=== PATIENT | male | born 1985 | race Caucasian/White ===

== ENCOUNTER 2017-02-11 00:09 | Observation (INO) | payer BC ==
[2017-02-11] MEDS ORDERED: diphenhydrAMINE 50 MG/ML SDV IVPUSH ONE (00:17)
[2017-02-11] MEDS ORDERED: Albuterol/Ipratropium 3.0-0.5 MG/3 ML Neb Soln NEB ONE ×2 (00:17→01:24)
--- NOTE | 2017-02-11 00:18 | EDM.PDOC ---
ED HPI GENERAL MEDICAL PROBLEM - General Chief Complaint: Allergic Reaction Stated Complaint: ANAPHYLAXIS Time Seen by Provider: 02/11/17 01:47 - History of Present Illness INITIAL COMMENTS - FREE TEXT/NARRATIVE: HISTORY AND PHYSICAL: History of present illness: Patient 31-year-old white male presents with acute allergic reaction after having had peanut butter he is known to be allergic to peanuts he was given epi 2 prior to arrival he still has shortness of breath and wheezing Review of systems: As per history of present illness and below otherwise all systems reviewed and negative. Past medical history: As per history of present illness and as reviewed below otherwise noncontributory. Surgical history: As per history of present illness and as reviewed below otherwise noncontributory. Social history: No reported history of drug or alcohol abuse. Family history: As per history of present illness and as reviewed below otherwise noncontributory. Physical exam: HEENT: Atraumatic, normocephalic, pupils reactive, negative for conjunctival pallor or scleral icterus, mucous membranes moist, throat clear, neck supple, nontender, trachea midline. No tongue or lip swelling noted Lungs: Diminished with rare end expiratory wheeze breath sounds equal bilaterally, chest nontender. Heart: S1S2, regular, negative for clicks, rubs, or JVD. Abdomen: Soft, nondistended, nontender. Negative for masses or hepatosplenomegaly. Negative for costovertebral tenderness. Pelvis: Stable nontender. Genitourinary: Deferred. Rectal: Deferred. Extremities: Atraumatic, negative for cords or calf pain. Neurovascular unremarkable. Neuro: Awake, alert, oriented. Cranial nerves II through XII unremarkable. Cerebellum unremarkable. Motor and sensory unremarkable throughout. Exam nonfocal. Diagnostics: None Therapeutics: Benadryl 50 IV Solu-Medrol 125 IV albuterol ipratropium nebulizer Impression: #1 acute allergic reaction Definitive disposition and diagnosis as appropriate pending reevaluation and review of above. - Related Data Allergies Allergy/AdvReac Type Severity Reaction Status Date / Time peanut Allergy Difficulty Verified 02/11/17 00:28 Breathing Home Meds: Home Meds . [No Known Home Meds] 02/11/17 [History] ED ROS ALLERGIC REACTION - Review of Systems Review Of Systems: ROS reveals no pertinent complaints other than HPI. ED EXAM GENERAL NO PERIP PULSE - Physical Exam Exam: See Below (See dictation) Course - Vital Signs Last Recorded V/S: Last Vital Signs Temp 36.3 C 02/11/17 01:02 Pulse 79 02/11/17 01:38 Resp 18 02/11/17 01:38 BP 100/58 L 02/11/17 01:38 Pulse Ox 95 02/11/17 01:38 - Orders/Labs/Meds Orders: Active Orders 24 hr Category Date Time Status EKG Documentation Completion [RC] STAT Care 02/11/17 01:39 Active RT Aerosol Therapy [RC] ASDIRECTED Care 02/11/17 00:18 Active RT Aerosol Therapy [RC] ASDIRECTED Care 02/11/17 01:26 Active Chest 1V Frontal [CR] Stat Exams 02/11/17 01:39 Ordered CBC WITH AUTO DIFF [HEME] Stat Lab 02/11/17 01:39 Ordered COMPREHENSIVE METABOLIC PN,CMP [CHEM] Stat Lab 02/11/17 01:39 Ordered Meds: Medications Discontinued Medications Generic Name Dose Route Start Last Admin Trade Name Juhi PRN Reason Stop Dose Admin Albuterol/Ipratropium 3 ml 02/11/17 00:17 02/11/17 00:28 Duoneb 3.0-0.5 Mg/3 Ml NEB 02/11/17 00:18 3 ml ONETIME ONE Administration Albuterol/Ipratropium 3 ml 02/11/17 01:24 02/11/17 01:31 Duoneb 3.0-0.5 Mg/3 Ml NEB 02/11/17 01:25 3 ml ONETIME ONE Administration Diphenhydramine HCl 50 mg 02/11/17 00:17 02/11/17 00:28 Benadryl IVPUSH 02/11/17 00:18 50 mg ONETIME ONE Administration Methylprednisolone Sodium Succinate 125 mg 02/11/17 00:19 02/11/17 00:28 Solu-Medrol IVPUSH 02/11/17 00:20 125 mg ONETIME ONE Administration Ondansetron HCl 8 mg 02/11/17 00:27 02/11/17 00:29 Zofran IVPUSH 02/11/17 00:28 8 mg ONETIME ONE Administration Departure - Departure Time of Disposition: 01:47 Disposition: Refer to Observation Condition: Good Clinical Impression: Allergic reaction - Discharge Information - My Orders Last 24 Hours: My Active Orders 02/11/17 00:18 RT Aerosol Therapy [RC] ASDIRECTED 02/11/17 01:26 RT Aerosol Therapy [RC] ASDIRECTED 02/11/17 01:39 EKG Documentation Completion [RC] STAT Chest 1V Frontal [CR] Stat CBC WITH AUTO DIFF [HEME] Stat COMPREHENSIVE METABOLIC PN,CMP [CHEM] Stat - Assessment/Plan Last 24 Hours: My Active Orders 02/11/17 00:18 RT Aerosol Therapy [RC] ASDIRECTED 02/11/17 01:26 RT Aerosol Therapy [RC] ASDIRECTED 02/11/17 01:39 EKG Documentation Completion [RC] STAT Chest 1V Frontal [CR] Stat CBC WITH AUTO DIFF [HEME] Stat COMPREHENSIVE METABOLIC PN,CMP [CHEM] Stat
[2017-02-11] MEDS ORDERED: methylPREDNISolone Sodium Succinate 125 MG/2 ML SDV IVPUSH ONE (00:19)
[2017-02-11] MEDS ORDERED: Ondansetron 4 MG/2 ML SDV IVPUSH ONE (00:27)
[2017-02-11 02:42] LABS: CHLORIDE,CL 104 mmol/L (98-110); SODIUM,NA 142 mmol/L (136-146)
[2017-02-11] MEDS ORDERED: Ondansetron 4 MG/2 ML SDV IVPUSH PRN (03:25)
[2017-02-11] MEDS ORDERED: Albuterol/Ipratropium 3.0-0.5 MG/3 ML Neb Soln NEB PRN (06:37)
[2017-02-11] MEDS ORDERED: Benzocaine/Cetylpyridinium/Menthol Lozenge MUCMEM PRN (08:59)
[2017-02-11] MEDS ORDERED: Fluticasone/Salmeterol 250-50 MCG Inhalation Powder 14/Diskus INH SCH (09:00)
--- NOTE | 2017-02-11 11:45 | PCM.HP ---
H&P History of Present Illness - General Date of Service: 02/11/17 Admit Problem/Dx: Admission Diagnosis/Problem Admission Diagnosis/Problem Anaphylaxis Source of Information: Patient History Limitations: Reports: No Limitations - History of Present Illness Initial Comments - Free Text/Narative: 31 yo male with history of asthma admitted for anaphylactic reaction to peanut butter. He was eating a peanut butter cookie yesterday and felt like his throat was swelling up, wheezing, choking, nausea, diffuse wheals . He had a epi pen where he used it twice without improvement. He has never been admitted for anaphylaxis. In the ER, he recieved IVP benadryl and solumedrol. He is admitted for monitoring of anaphylactic reaction. He is allergic to all nuts and penicillin. He never experiecned severe reaction as this episode. Throat Pain Score (Numeric/FACES): 1 - Related Data Allergies/Adverse Reactions: Allergies Allergy/AdvReac Type Severity Reaction Status Date / Time peanut Allergy Difficulty Verified 02/11/17 00:28 Breathing Penicillins Allergy Difficulty Verified 02/11/17 03:15 Breathing Home Medications: Home Meds Albuterol Sulfate [Ventolin Hfa] 02/11/17 [History] Fluticasone/Salmeterol [Advair Diskus 250-50] 02/11/17 [History] Fluticasone/Salmeterol [Advair Diskus 250-50] 1 puff INH BID inhaler 02/11/17 [ Rx] Past Medical History - Past Health History Medical/Surgical History: Denies Medical/Surgical History Respiratory History: Reports: Asthma - Past Surgical History GI Surgical History: Reports: Hernia Repair/Other Social & Family History - Family History Family Medical History: Noncontributory - Tobacco Use Smoking Status *Q: Never Smoker Second Hand Smoke Exposure: No - Caffeine Use Caffeine Use: Reports: Coffee - Alcohol Use Date of Last Drink: 02/11/17 - Recreational Drug Use Recreational Drug Use: No H&P Review of Systems - Review of Systems: Review Of Systems: See Below General: Reports: No Symptoms HEENT: Reports: Sore Throat Pulmonary: Reports: No Symptoms Cardiovascular: Reports: No Symptoms Gastrointestinal: Reports: No Symptoms Genitourinary: Reports: No Symptoms Musculoskeletal: Reports: No Symptoms Skin: Reports: Urticaria. Denies: Pruritis Psychiatric: Reports: No Symptoms Neurological: Reports: No Symptoms Immunologic: Reports: Anaphylaxis Exam - Exam Exam: See Below - Vital Signs Vital Signs: Last Vital Signs Temp 98.0 F 02/11/17 07:50 Pulse 96 02/11/17 07:50 Resp 20 02/11/17 07:50 BP 92/44 L 02/11/17 07:50 Pulse Ox 96 02/11/17 07:50 Weight: 69.1 kg - Exam General: Alert, Oriented, Cooperative HEENT: Conjunctiva Clear, EOMI, Hearing Intact, Mucosa Moist & [place], Nares Patent Neck: Supple, Trachea Midline Lungs: Clear to Auscultation, Normal Respiratory Effort. No: Rhonchi, Stridor, Wheezing Cardiovascular: Regular Rate, Regular Rhythm Abdomen: Normal Bowel Sounds, Soft Back Exam: Normal Inspection, Full Range of Motion Extremities: Normal Inspection Skin: Rash (upper extremity wheals resolving. No warmth, No edema) Neurological: Cranial Nerves Intact - Patient Data Lab Results Last 24 hrs: Laboratory Results - last 24 hr 02/11/17 02/11/17 Range/Units 01:58 01:58 WBC 12.47 H (4.0-11.0) K/uL RBC 4.80 (4.50-5.90) M/uL Hgb 14.2 (13.0-17.0) g/dL Hct 42.3 (38.0-50.0) % MCV 88.1 (80.0-98.0) fL MCH 29.6 (27.0-32.0) pg MCHC 33.6 (31.0-37.0) g/dL RDW Std Deviation 42.1 (28.0-62.0) fl RDW Coeff of Manish 13 (11.0-15.0) % Plt Count 174 (150-400) K/uL MPV 13.00 H (7.40-12.00) fL Neut % (Auto) 68.7 (48.0-80.0) % Lymph % (Auto) 24.0 (16.0-40.0) % [place] % (Auto) 4.1 (0.0-15.0) % Eos % (Auto) 3.1 (0.0-7.0) % Baso % (Auto) 0.1 (0.0-1.5) % Neut # (Auto) 8.6 H (1.4-5.7) K/uL Lymph # (Auto) 3.0 H (0.6-2.4) K/uL [place] # (Auto) 0.5 (0.0-0.8) K/uL Eos # (Auto) 0.4 (0.0-0.7) K/uL Baso # (Auto) 0.0 (0.0-0.1) K/uL Nucleated RBC % 0.0 /100WBC Nucleated RBCs # 0 K/uL Sodium 142 (136-146) mmol/L Potassium 3.9 (3.5-5.1) mmol/L Chloride 104 (98-110) mmol/L Carbon Dioxide 25 (21-31) mmol/L BUN 25 H (6.0-23.0) mg/dL Creatinine 1.0 (0.6-1.5) mg/dL Est Cr Clr Drug Dosing TNP Estimated GFR (MDRD) > 60.0 ml/min Glucose 120 H (60-110) mg/dL Calcium 8.9 (8.8-10.8) mg/dL Total Bilirubin 0.4 (0.1-1.5) mg/dL AST 38 (5-40) IU/L ALT 33 (8-54) IU/L Alkaline Phosphatase 65 (40-150) Total Protein 6.6 (6.0-8.0) g/dL Albumin 4.3 (3.5-5.0) g/dL Globulin 2.3 (2.0-3.5) g/dL Albumin/Globulin Ratio 1.9 (1.3-2.8) Result Diagrams: 02/11/17 01:58 02/11/17 01:58 *Q Meaningful Use (ADM) - VTE *Q VTE Criteria *Q: - Stroke *Q Stroke Criteria *Q: - AMI *Q AMI Criteria *Q: Problem List Initiated/Reviewed/Updated: Yes Orders Last 24hrs: Active Orders 24 hr Category Date Time Status Overnight Pulse Oximetry [RC] Click To Edit Care 02/11/17 03:21 Active RT Aerosol Therapy [RC] ASDIRECTED Care 02/11/17 06:39 Active RT Post Treatment Assessment [RC] Click To Edit Care 02/11/17 08:57 Active RT Pre-Treatment Assessment [RC] Click To Edit Care 02/11/17 08:57 Active Ready for Discharge [RC] PER UNIT ROUTINE Care 02/11/17 11:25 Active Telemetry Monitoring [Cardiac Monitoring] [RC] Q8H Care 02/11/17 02:28 Active Regular Diet [DIET] Diet 02/11/17 Breakfast Active Albuterol/Ipratropium [DuoNeb 3.0-0.5 MG/3 ML] Med 02/11/17 06:37 Active 3 ml NEB Q4HRRT PRN Benzocaine/Cetylpyrd/Menthol [Cepacol Sore Throat] Med 02/11/17 08:59 Active 1 lozenge MUCMEM Q2HR PRN Fluticasone/Salmeterol [Advair Diskus 250-50] Med 02/11/17 09:00 Active 1 puff INH BID Ondansetron [Zofran] Med 02/11/17 03:25 Active 4 mg IVPUSH Q4H PRN Pulse Oximetry Continuous Monitoring [OM.PC] Routine Oth 02/11/17 03:21 Ordered Medication Orders Albuterol/Ipratropium (Duoneb 3.0-0.5 Mg/3 Ml) 3 ml NEB Q4HRRT PRN PRN Reason: Wheezing Last Admin: 02/11/17 06:56 Dose: 3 ml Benzocaine/Menthol (Cepacol Sore Throat) 1 lozenge MUCMEM Q2HR PRN PRN Reason: Sore Throat Ondansetron HCl (Zofran) 4 mg IVPUSH Q4H PRN PRN Reason: Nausea/Vomiting Last Admin: 02/11/17 05:15 Dose: 4 mg Fluticasone/Salmeterol (Advair Diskus 250-50) 1 puff INH BID YRIS Last Admin: 02/11/17 10:22 Dose: Not Given Assessment/Plan Comment:: 31 yo male admitted for anaphylactic reaction to peanut butter cookie: improved Sorethroat: cefacol lozenges Wheals: improving Asthma: stable. restart advair and continue duonebs prn. Plan to DC today.
--- NOTE | 2017-02-11 12:03 | PCM.DCSUM1 ---
Discharge Summary - Hospital Course Free Text/Narrative:: 31 yo male with history of asthma admitted for first episode of anaphylactic reaction to peanut butter cookie. In the ED he recieved IV benadryl and solumedrol. He was monitored overnight with duonebs and telemetry and he had improved. He does have advair, albuterol and epi pen at home. He declined refills. He was discharged in stable condition. - Discharge Data Discharge Date: 02/11/17 Discharge Disposition: Home, Self-Care 01 Condition: Good - Patient Instructions Diet, Other: no nuts Activity: As Tolerated Driving: May Drive Today Showering/Bathing: December Shower Notify Provider of: Fever, Increased Pain, Swelling and Redness, Drainage, Nausea and/or Vomiting - Discharge Plan Home Medications: Home Meds Albuterol Sulfate [Ventolin Hfa] 02/11/17 [History] Fluticasone/Salmeterol [Advair Diskus 250-50] 02/11/17 [History] Fluticasone/Salmeterol [Advair Diskus 250-50] 1 puff INH BID inhaler 02/11/17 [ Rx] Referrals: Sarah Shelley DO [Primary Care Provider] - - General Info Date of Service: 02/11/17 Functional Status: Reports: tolerating diet, urinating - Review of Systems General: Reports: No Symptoms HEENT: Reports: no symptoms Pulmonary: Reports: no symptoms Cardiovascular: Reports: No Symptoms Gastrointestinal: Reports: No symptoms Genitourinary: Reports: no symptoms Musculoskeletal: Reports: no symptoms Skin: Reports: no symptoms Neurological: Reports: No Symptoms Psychiatric: Reports: no symptoms - Patient Data Vitals - Most Recent: Last Vital Signs Temp 98.0 F 02/11/17 07:50 Pulse 96 02/11/17 07:50 Resp 20 02/11/17 07:50 BP 92/44 L 02/11/17 07:50 Pulse Ox 96 02/11/17 07:50 Weight - Most Recent: 69.1 kg I&O - Last 24 hours: Intake & Output 02/10/17 02/11/17 02/11/17 22:59 06:59 14:59 Intake Total 0 Output Total 100 Balance -100 Lab Results - Last 24 hrs: Laboratory Results - last 24 hr 02/11/17 02/11/17 Range/Units 01:58 01:58 WBC 12.47 H (4.0-11.0) K/uL RBC 4.80 (4.50-5.90) M/uL Hgb 14.2 (13.0-17.0) g/dL Hct 42.3 (38.0-50.0) % MCV 88.1 (80.0-98.0) fL MCH 29.6 (27.0-32.0) pg MCHC 33.6 (31.0-37.0) g/dL RDW Std Deviation 42.1 (28.0-62.0) fl RDW Coeff of Manish 13 (11.0-15.0) % Plt Count 174 (150-400) K/uL MPV 13.00 H (7.40-12.00) fL Neut % (Auto) 68.7 (48.0-80.0) % Lymph % (Auto) 24.0 (16.0-40.0) % [place] % (Auto) 4.1 (0.0-15.0) % Eos % (Auto) 3.1 (0.0-7.0) % Baso % (Auto) 0.1 (0.0-1.5) % Neut # (Auto) 8.6 H (1.4-5.7) K/uL Lymph # (Auto) 3.0 H (0.6-2.4) K/uL [place] # (Auto) 0.5 (0.0-0.8) K/uL Eos # (Auto) 0.4 (0.0-0.7) K/uL Baso # (Auto) 0.0 (0.0-0.1) K/uL Nucleated RBC % 0.0 /100WBC Nucleated RBCs # 0 K/uL Sodium 142 (136-146) mmol/L Potassium 3.9 (3.5-5.1) mmol/L Chloride 104 (98-110) mmol/L Carbon Dioxide 25 (21-31) mmol/L BUN 25 H (6.0-23.0) mg/dL Creatinine 1.0 (0.6-1.5) mg/dL Est Cr Clr Drug Dosing TNP Estimated GFR (MDRD) > 60.0 ml/min Glucose 120 H (60-110) mg/dL Calcium 8.9 (8.8-10.8) mg/dL Total Bilirubin 0.4 (0.1-1.5) mg/dL AST 38 (5-40) IU/L ALT 33 (8-54) IU/L Alkaline Phosphatase 65 (40-150) Total Protein 6.6 (6.0-8.0) g/dL Albumin 4.3 (3.5-5.0) g/dL Globulin 2.3 (2.0-3.5) g/dL Albumin/Globulin Ratio 1.9 (1.3-2.8) Med Orders - Current: Current Medications Albuterol/Ipratropium (Duoneb 3.0-0.5 Mg/3 Ml) 3 ml NEB Q4HRRT PRN PRN Reason: Wheezing Last Admin: 02/11/17 06:56 Dose: 3 ml Benzocaine/Menthol (Cepacol Sore Throat) 1 lozenge MUCMEM Q2HR PRN PRN Reason: Sore Throat Ondansetron HCl (Zofran) 4 mg IVPUSH Q4H PRN PRN Reason: Nausea/Vomiting Last Admin: 02/11/17 05:15 Dose: 4 mg Fluticasone/Salmeterol (Advair Diskus 250-50) 1 puff INH BID YRIS Last Admin: 02/11/17 10:22 Dose: Not Given Discontinued Medications Albuterol/Ipratropium (Duoneb 3.0-0.5 Mg/3 Ml) 3 ml NEB ONETIME ONE Stop: 02/11/17 00:18 Last Admin: 02/11/17 00:28 Dose: 3 ml Albuterol/Ipratropium (Duoneb 3.0-0.5 Mg/3 Ml) 3 ml NEB ONETIME ONE Stop: 02/11/17 01:25 Last Admin: 02/11/17 01:31 Dose: 3 ml Diphenhydramine HCl (Benadryl) 50 mg IVPUSH ONETIME ONE Stop: 02/11/17 00:18 Last Admin: 02/11/17 00:28 Dose: 50 mg Methylprednisolone Sodium Succinate (Solu-Medrol) 125 mg IVPUSH ONETIME ONE Stop: 02/11/17 00:20 Last Admin: 02/11/17 00:28 Dose: 125 mg Ondansetron HCl (Zofran) 8 mg IVPUSH ONETIME ONE Stop: 02/11/17 00:28 Last Admin: 02/11/17 00:29 Dose: 8 mg - Exam General: Reports: alert, oriented, cooperative HEENT: Reports: Pupils equal, Pupils reactive, EOMI Neck: Reports: supple Lungs: Reports: Clear to auscultation, Normal respiratory effort. Denies: Crackles, Rales, Rhonchi, Stridor Cardiovascular: Reports: Regular Rate, Regular Rhythm Abdomen: Reports: bowel sounds present, soft Extremities: Reports: no edema Skin: Reports: warm, dry, intact Neurological: Reports: no new focal deficit Psy/Mental Status: Reports: alert, normal affect, normal mood *Q Meaningful Use (DIS) - VTE *Q VTE Criteria *Q: - Stroke *Q Stroke Criteria *Q: - AMI *Q AMI Criteria *Q:
[2017-02-11 12:07] VITALS: BP 111/69
--- NOTE | 2017-02-12 15:19 | CR ---
EXAM DATE: 02/11/17 PATIENT'S AGE: 31 Patient: SATISH ANTHONY Facility: [place], [place] Site . Site : 1985 Study: XRay Chest [id number] 2:10:29 AM Ordering Physician: Zoe Dee Final Report: INDICATION: sob,pain. allergic reaction TECHNIQUE: Chest radiograph 1 view COMPARISON: None FINDINGS: Cardiovascular and mediastinum: The cardiac silhouette is normal in appearance and size. Mediastinum is within normal limits. Lungs and pleural space: Both lungs are unremarkable in appearance. No sign of pleural effusion. No pneumothorax is seen. Bones and soft tissues: No significant findings. IMPRESSION: 1. No acute cardiopulmonary disease seen. Dictated by: Hasmukh Williamson MD @ 02/11/2017 02:11:16 (Electronic Signature) Report Signed by Proxy. [id number]
== END 2017-02-11 12:25 | disposition home or self-care (01) ==
LOC: MW.ED 00:09 → MW.MS 01:48
PROVIDERS: ADMIT Internal Medicine; ATTEND Internal Medicine
DX: T78.01XA Anaphylactic reaction due to peanuts, initial encounter (principal); J45.909 Unspecified asthma, uncomplicated; Z88.0 Allergy status to penicillin; Z91.010 Allergy to peanuts; Z79.899 Other long term (current) drug therapy
CPT/HCPCS: 36415; 71010; 80053; 85025; 94664; 96374; 96375; 96376; 99285; G0378; J1200; J2405; J2930; 93005; 99283; A9270-GY